=== PATIENT | male | born 1960 ===

== ENCOUNTER → 2017-06-05 | Outpatient (CLI) | payer OTHER ==
[2017-06-05 18:20] LABS: BASO ABS # 0.06 K/uL (0-0.2); EOS % 6.8 %; EOS ABS # 0.39 K/uL (0-0.5); HEMATOCRIT 41.7 % (42-52); HEMOGLOBIN 14.3 g/dL (14.0-18.0); IG# 0.02 K/uL (0.00-0.02); LYMPH % 30.6 %; LYMPH ABS # 1.76 K/uL (1.2-3.4); MEAN CELL VOLUME 90.3 fL (80-100); MEAN CORPUSCULAR HGB CONC 34.3 g/dl (32-36); MEAN PLATELET VOLUME 9.8 fL (7.4-10.4); MONO % 4.5 %; MONO ABS # 0.26 K/uL (0.11-0.59); NEUT % 56.8 %; NEUT ABS # 3.27 K/uL (1.4-6.5); PLATELET COUNT 246 K/uL (130-400); RED CELL DISTRIBUTION WIDTH CV 12.8 % (11.5-14.5); RED CELL DISTRIBUTION WIDTH SD 41.7 fL (36.4-46.3); WHITE BLOOD COUNT 5.76 K/uL (4.8-10.8)
[2017-06-05 18:32] LABS: ALBUMIN 4.2 gm/dl (3.4-5.0); ALT/SGPT 48 U/L (12-78); AST/SGOT 23 U/L (15-37); BLOOD UREA NITROGEN 11 mg/dl (7-18); CALCIUM 9.4 mg/dl (8.5-10.1); CARBON DIOXIDE 28 mmol/L (21-32); CHOLESTEROL 136 mg/dl (0-200); CREATININE 0.91 mg/dl (0.60-1.40); GLUCOSE 86 mg/dl (70-99); SODIUM 141 mmol/L (136-145)
[2017-06-05 18:35] LABS: ALKALINE PHOSPHATASE 95 U/L (45-117); LDL CHOLESTEROL CALCULATED 52 mg/dl; TOTAL PROTEIN 7.5 gm/dl (6.4-8.2)
== END | disposition home or self-care (01) ==
LOC: C.LABSPEC 17:48
PROVIDERS: ATTEND Family Medicine
DX: Z00.00 Encounter for general adult medical examination without abnormal findings (principal); E78.2 Mixed hyperlipidemia